=== PATIENT | male | born 1945 | race Caucasian/White ===

== ENCOUNTER 2022-04-25 19:53 | Inpatient (IN) | payer MEDICARE, BC ==
[~2022-04-25] VITALS: Ht 177.8 cm; Wt 70.8 kg
--- NOTE | 2022-04-25 19:55 | NUR ---
TO ER BED 8. BIBR 99 FROM HOME C/O SYNCOPAL EPISODE X 2. AFIB W/ HR OF 147 UPON TRIAGE. AAOX4. AMBULATORY. ADMITS TO POSSIBLE HEAD TRAUMA. DOES NOT KNOW IF KO. CONNECTED TO MONITOR. AWAITING MD ESTRADA
--- NOTE | 2022-04-25 20:02 | NUR ---
BLOOD COLLECTED AND SENT TO LAB
--- NOTE | 2022-04-25 20:02 | NUR ---
COVID ANTIGEN SWAB COLLECTED AND SENT TO LAB
[2022-04-25] MEDS ORDERED: DILTIAZEM HCL 50 MG IV ONE (20:06)
--- NOTE | 2022-04-25 20:19 | NUR ---
STAT EKG PERFORMED AT 1958 AND ORDER CAME IN AT 2003.
[2022-04-25 20:30] LABS: BASOPHILS % (AUTO) 0.3 % (0.0-2.0); EOSINOPHILS % (AUTO) 0.5 % (0.0-6.0); HEMATOCRIT 43 % (39-51); HEMOGLOBIN 14.2 g/dL (13.5-17.5); LYMPHOCYTES # (AUTO) 1.5 K/uL (0.8-4.8); MEAN CORPUSCULAR HGB CONC 33 g/dl (31.0-36.0); MEAN CORPUSCULAR VOLUME 99 fL (80-96); MONOCYTES # (AUTO) 0.6 K/uL (0.1-1.30); MONOCYTES % (AUTO) 5.2 % (2.0-12.0); NEUTROPHILS # (AUTO) 9.1 K/uL (1.8-8.9); PLATELET COUNT (AUTO) 220 K/uL (150-450); RED BLOOD CELL COUNT(AUTO) 4.33 MIL/uL (4.5-6.0); WHITE BLOOD COUNT (AUTO) 11.2 K/uL (4.3-11.0)
[2022-04-25] MEDS ORDERED: DILTIAZEM HCL 50 MG IV IV ONE (20:30)
[2022-04-25] MEDS ORDERED: IV NS 0.9% 500 ML BAG IV ONE (20:30)
--- NOTE | 2022-04-25 20:34 | NUR ---
VISUAL AID EXPERT AT PT'S BEDSIDE
--- NOTE | 2022-04-25 20:34 | NUR ---
WOUND CARE TO LEFT ELBOW SKINTEAR DONE. 8CM X 5CM. APPLIED NONADHERENT DRESSING AND KEPT CLEAN AND DRY.
[2022-04-25 20:45] LABS: CALCIUM, SERUM 8.3 mg/dL (8.5-10.1); CARBON DIOXIDE 25 mmol/L (21-32); CHLORIDE 100 mmol/L (98-107); CREATININE 1.3 mg/dL (0.6-1.3); GLUCOSE 187 mg/dL (74-106); POTASSIUM 3.7 mmol/L (3.5-5.1); SODIUM SERUM 139 mmol/L (136-145); UREA NITROGEN, BLOOD 21 mg/dL (7-18)
--- NOTE | 2022-04-25 20:45 | NUR ---
PT TAKEN FOR CT SCAN
--- NOTE | 2022-04-25 20:45 | NUR ---
BRONWYN [phone]
[2022-04-25] MEDS ORDERED: DEXAMETHASONE SOD PHOSPHATE 10 MG/ML VIAL ONE (20:56)
[2022-04-25 20:57] LABS: ALANINE AMINOTRANSFERASE 16 U/L (12-78); ALBUMIN 3.1 g/dL (3.4-5.0); ALKALINE PHOSPHATASE 121 U/L (46-116); ASPARTATE AMINOTRANSFERASE 18 U/L (15-37); BILIRUBIN,DIRECT 0.2 mg/dL (0.0-0.2); TOTAL PROTEIN, SERUM 6.9 g/dL (6.4-8.2)
[2022-04-25] MEDS ORDERED: DEXAMETHASONE SOD PHOSPHATE 10 MG/ML VIAL IV ONE (21:00)
[2022-04-25] MEDS ORDERED: IV NS 0.9% 1,000 ML BAG IV ONE (21:00)
--- NOTE | 2022-04-25 21:04 | NUR ---
URINE SAMPLE COLLECTED AND SENT TO LAB
--- NOTE | 2022-04-25 21:05 | NUR ---
LAB AT BEDSIDE FOR CULTURES
--- NOTE | 2022-04-25 21:21 | NUR ---
DR. WEINER ON PHONECALL WITH DR. MORA REGARDING ADMISSION
[2022-04-25] MEDS ORDERED: CEFTRIAXONE 1GM BAG (ER ONLY) 50 ML IV ONE ×2 (21:30→21:47)
[2022-04-25] MEDS ORDERED: hydrALAZINE HCL IV 20 MG VIAL IV PRN (21:30)
[2022-04-25] MEDS ORDERED: ACETAMINOPHEN 325 MG TABLET PO PRN (21:30)
[2022-04-25] MEDS ORDERED: ONDANSETRON HCL/PF 4 MG/2 ML VIAL IVP PRN (21:30)
[2022-04-25 21:35] LABS: BILIRUBIN,URINE SMALL (NEGATIVE); COLOR,URINE YELLOW (YELLOW); LEUKOCYTE ESTERASE ,URINE NEGATIVE (NEGATIVE); NITRITE, URINE NEGATIVE (NEGATIVE); PROTEIN,URINE 100 mg/dl (NEGATIVE); UGLUCOSE >=1000 mg/dL (NEGATIVE)
[2022-04-25] MEDS ORDERED: APIXABAN 5 MG TABLET ONE (21:47)
[2022-04-25 21:54] LABS: BACTERIA,URINE None seen /HPF (None Seen); RBC,URINE 81-100 /HPF (0-2)
[2022-04-25] MEDS: APIXABAN 5 MG TABLET PO SCH (21:55)
--- NOTE | 2022-04-25 22:06 | NUR ---
ASSIGNED TO 113-1
[2022-04-25] MEDS ORDERED: PREG50CA PO (22:12)
[2022-04-25] MEDS ORDERED: PITA2TAB PO (22:12)
[2022-04-25] MEDS ORDERED: METF-440 PO (22:12)
[2022-04-25] MEDS ORDERED: OXYC-128 PO (22:12)
[2022-04-25] MEDS ORDERED: ATEN25TA PO (22:12)
[2022-04-25] MEDS ORDERED: METH-647 PO (22:12)
[2022-04-25] MEDS ORDERED: ICOS1CAP PO (22:12)
[2022-04-25] MEDS ORDERED: LEVO75TA7 PO (22:12)
[2022-04-25] MEDS ORDERED: EMPA10TA PO (22:12)
[2022-04-25] MEDS ORDERED: ESCI20TA PO (22:12)
[2022-04-25] MEDS ORDERED: ALLO300T2 PO (22:12)
[2022-04-25] MEDS ORDERED: APIX5TAB PO (22:12)
[2022-04-25] MEDS ORDERED: TAMS-12 PO (22:12)
--- NOTE | 2022-04-25 22:14 | NUR ---
REPORT GIVEN TO BINH MARTINEZ FOR CHIKIS
[2022-04-25] MEDS: IV NS 0.9% 1,000 ML IV SCH (22:36)
--- NOTE | 2022-04-25 22:50 | NUR ---
MARBLE CHIP TERRAZZO WORKER INITIAL NOTE 22:35 RECEIVED REPORT FROM ER NURSE MARIA LUISA FOR PT JOHN BALAJI. PT ARRIVED IN BARBARA/TELE FROM ER VIA GURNEY, ADMITTED FOR SYNCOPAL EPISODE X 2, ON RA TOLERATING WELL. PT IS A/O X 3, SHOWS NO S/SX OF ACUTE DISTRESS NOTED AT THIS TIME. ABLE TO MAKE NEEDS KNOWN. IV ACCESS NOTED IN RFA #18g AND STARTED RUNNING NS @ 75 CC/HR PER MD ORDERED. PT REQUESTED TO GET HUANG CATH IN PLACE. DISCUSSED WITH MD AND WAS ORDERED AND DONE BY CHARGE NURSE MONA. INITIAL ASSESSMENTS DONE, PICTURES TAKEN (PT HAS AN OPEN SKIN TEAR ON LEFT ELBOW NOTED. CHANGED AND CLEANED THE BLOODY DRESSING) AND PLACED ON CHART, KEPT PT DRY AND CLEAN. ALL SAFETY MEASURES IN PLACE: BED LOCKED IN LOWEST POSITION. BED ALARM ON. CALL LIGHT WITHIN REACH. WILL CONTINUE TO MONITOR CLOSELY FOR ANY CHANGES.
--- NOTE | 2022-04-25 22:54 | NUR ---
TELE-1/RN DR. MORA AT BEDSIDE DISCUSSING POC WITH PT. HUANG CATH PLACED VIA STERILE PROCEDURE. PT TOLERATED PROCEDURE WELL.
[2022-04-25] MEDS ORDERED: DEXTROSE 50%-WATER 50 ML DISP.SYRIN IV PRN (23:00)
[2022-04-25] MEDS ORDERED: MIDODRINE HCL (5MG) 5 MG TABLET PO PRN (23:30)
[2022-04-25] MEDS: BLOOD SUGAR DIAGNOSTIC 1 EACH STRIP IN SCH (23:45)
[2022-04-25] MEDS: INSULIN REGULAR, HUMAN 100 UNIT/ML 3 ML VIAL SQ PRN (23:49)
[2022-04-26] VITALS: BP 154/77
[2022-04-26 04:00] VITALS: BP 117/54
[2022-04-26 06:30] LABS: HEMATOCRIT 40 % (39-51); HEMOGLOBIN 13.5 g/dL (13.5-17.5); LYMPHOCYTES # (AUTO) 0.7 K/uL (0.8-4.8); LYMPHOCYTES % (AUTO) 9.7 % (20.0-44.0); MEAN CORPUSCULAR HGB CONC 34 g/dl (31.0-36.0); MEAN CORPUSCULAR VOLUME 98 fL (80-96); MONOCYTES # (AUTO) 0.1 K/uL (0.1-1.30); MONOCYTES % (AUTO) 1.4 % (2.0-12.0); NEUTROPHILS # (AUTO) 6.6 K/uL (1.8-8.9); NEUTROPHILS % (AUTO) 88.9 % (43.0-81.0); PLATELET COUNT (AUTO) 216 K/uL (150-450); RED BLOOD CELL COUNT(AUTO) 4.08 MIL/uL (4.5-6.0); WHITE BLOOD COUNT (AUTO) 7.4 K/uL (4.3-11.0)
[2022-04-26 06:31] LABS: BILIRUBIN,TOTAL 0.5 mg/dL (0.2-1.0); CALCIUM, SERUM 8.1 mg/dL (8.5-10.1); CREATININE 0.9 mg/dL (0.6-1.3); MAGNESIUM 2.2 mg/dL (1.8-2.4); PHOSPHORUS 2.5 mg/dL (2.5-4.9); POTASSIUM 4.3 mmol/L (3.5-5.1); TOTAL PROTEIN, SERUM 6.7 g/dL (6.4-8.2)
--- NOTE | 2022-04-26 06:50 | NUR ---
PERFORATOR LOADER CLOSING NOTE PT REMAINED STABLE THROUGHOUT THE SHIFT. ON RA, TOLERATING WELL. NO S/SX OF ACUTE DISTRESS NOTED. TELEMONITOR SHOWS SINUS BRADYCARDIA WITH HR IN THE 50s. O2 SAT IS 99%. IV ACCESS IN RFA #18g RUNNING NS @ 75 CC/HR. HUANG CATH IN PLACE, TOLERATING WELL, DRAINING YELLOW URINE VIA GRAVITY. ALL DUE MEDS GIVEN. NEEDS ATTENDED TO. SAFETY MEASURES IMPLEMENTED: BED LOCKED IN LOWEST POSITION. BED ALARM ON. CALL LIGHT WITHIN REACH. WILL ENDORSE TO AM SHIFT NURSE FOR CHIKIS.
--- NOTE | 2022-04-26 07:00 | NUR ---
RN am note Patient is in bed sleeping , on room air , tolerating well,breathing unlabored , O2 sat 99 %, has Eller Cath in place with clear yellow urine.Patient is at high risk for fall due to ambulatory with primary diagnosis Syncope. Patient has mechanical wound of his left elbow , awaiting wound consult.Patient has IV acces of the RFA 18 g with NS running at 75 ml/hr . IV site assessed , skin intact , no sighs of infiltration.Patient is on regular diet All safety measures were observed,bed side rails are up , bed is at lowest position , call light within reach will continue to monitor..
[2022-04-26] MEDS: LEVOTHYROXINE SODIUM 75 MCG TABLET PO SCH (07:07)
[2022-04-26] MEDS: BLOOD SUGAR DIAGNOSTIC 1 EACH STRIP IN SCH ×4 (07:31→22:43)
[2022-04-26] MEDS: INSULIN REGULAR, HUMAN 100 UNIT/ML 3 ML VIAL SQ PRN ×4 (07:37→22:43)
[2022-04-26 08:00] VITALS: BP 159/77
[2022-04-26] MEDS: ESCITALOPRAM OXALATE (10 MG) 10 MG TABLET PO SCH (08:21)
[2022-04-26] MEDS: FLUDROCORTISONE 0.1 MG TABLET PO SCH (08:21)
[2022-04-26] MEDS: ALLOPURINOL 100 MG TABLET PO SCH ×2 (08:21→16:23)
[2022-04-26] MEDS: METHOCARBAMOL (500MG) 500 MG TABLET PO SCH ×3 (08:22→16:23)
[2022-04-26] MEDS: ATORVASTATIN 10 MG TABLET PO SCH (08:23)
[2022-04-26] MEDS: TAMSULOSIN 0.4 MG CAP.SR.24H PO SCH (08:23)
[2022-04-26] MEDS: PREGABALIN 25 MG CAPSULE PO SCH ×3 (08:24→16:23)
[2022-04-26] MEDS: APIXABAN 5 MG TABLET PO SCH (08:26)
[2022-04-26] MEDS: ATENOLOL 25 MG TABLET PO SCH (08:28)
[2022-04-26] MEDS ORDERED: Medication Not On Formulary EA (Icosapent Ethyl (Vascepa) 2 GM) PO SCH (09:00)
[2022-04-26] MEDS ORDERED: LEVOFLOXACIN (250MG) 250 MG TABLET PO SCH (09:00)
[2022-04-26] MEDS ORDERED: APIXABAN 5 MG TABLET PO SCH (09:00)
[2022-04-26] MEDS: LEVOFLOXACIN (250MG) 250 MG TABLET PO SCH (10:45)
[2022-04-26] MEDS: IV NS 0.9% 1,000 ML IV SCH (10:48)
--- NOTE | 2022-04-26 11:12 | NUR ---
RN note order received to start patient on NPO, due to scheduled procedure PEG placement for tonight 19-20 pm .Aleida srinivasan Matt was notified , verbalized understanding. Addendum: 04/26/22 at 1333 by APRIL LOMELI RN wrong documentation, please disregard
[2022-04-26] MEDS: MORPHINE SULFATE INJ 2 MG/ML DISP.SYRIN IV PRN ×7 (12:04→21:56)
[2022-04-26 13:42] VITALS: BP 117/67
[2022-04-26 16:14] VITALS: BP 132/82
--- NOTE | 2022-04-26 17:35 | NUR ---
RN note wound of the left elbow , dressing changed, cleansed with ND , pet dried, applied Xeroform , wrap with kerlx , secure with tape, patient tolerated procedure well.
--- NOTE | 2022-04-26 18:45 | NUR ---
RN closing note Patient is alert , oriented times 3, ambulatory. Has Eller cath in place, urine is clear and yellow. Patient is at room air breathing un labored, O2 sat 98 %, c/o pain of the left hip ,morphine was given twice upon day shift .Patient has NS running at 75 ml/hr via saline lock of the right wrist,has open wound of the left elbow , wound care was done , home care specialist visit is pending. All medication were provided per MD order. Bed is at lowest position , bed side rails are up , call light within reach .
--- NOTE | 2022-04-26 19:25 | NUR ---
DAMPER MAKER OPENING NOTES RECEIVED CARE OF PATIENT FROM AM NURSE, PATIENT IN BED, A/O X3, ABLE TO MAKE NEEDS KNOWN. PATIENT IN NO DISCOMFORT AT THIS TIME. PATIENT IN ROOM AIR, BREATHING EVEN AND UNLABORED, NO SOB NOTED, O2 SAT 96%. PATIENT WITH TELE MONITOR SHOWING SINUS DOMENICO WITH HR OF 62, NO DISTRESS NOTED ON PATIENT. NO SIGNIFICANT FINDINGS UPON INITIAL NURSING ASSESSMENTS. SAFETY MEASURES IMPLEMENTED PER HOSPITAL PROTOCOLS. WILL CONTINUE TO MONITOR PATIENT.
[2022-04-26 20:00] VITALS: BP 144/68
[2022-04-27] VITALS: BP 150/85
[2022-04-27] MEDS: MORPHINE SULFATE INJ 2 MG/ML DISP.SYRIN IV PRN ×3 (02:12→15:51)
[2022-04-27 04:00] VITALS: BP 175/96
--- NOTE | 2022-04-27 05:25 | NUR ---
RN NOTES PATIENT NOTED TO BE HYPERTENSIVE WITH BP OF 175/96, HR OF 63. PATIENT SHOWING NO SIGNS AND SYMPTOMS OF ACUTE DISTRESS. WILL ADMINISTER HYDRALAZINE PRN FOR SBP GREATER THAN 160. WILL REASSESS BP ACCORDINGLY
[2022-04-27 05:57] LABS: BASOPHILS % (AUTO) 0.1 % (0.0-2.0); HEMATOCRIT 40 % (39-51); HEMOGLOBIN 13.6 g/dL (13.5-17.5); LYMPHOCYTES # (AUTO) 1.1 K/uL (0.8-4.8); LYMPHOCYTES % (AUTO) 11.7 % (20.0-44.0); MEAN CORPUSCULAR HGB CONC 34 g/dl (31.0-36.0); MEAN CORPUSCULAR VOLUME 99 fL (80-96); MONOCYTES # (AUTO) 0.4 K/uL (0.1-1.30); MONOCYTES % (AUTO) 4.4 % (2.0-12.0); NEUTROPHILS # (AUTO) 8.1 K/uL (1.8-8.9); NEUTROPHILS % (AUTO) 83.8 % (43.0-81.0); PLATELET COUNT (AUTO) 257 K/uL (150-450); RED BLOOD CELL COUNT(AUTO) 4.09 MIL/uL (4.5-6.0); WHITE BLOOD COUNT (AUTO) 9.7 K/uL (4.3-11.0)
[2022-04-27 06:32] LABS: CALCIUM, SERUM 8.1 mg/dL (8.5-10.1); CARBON DIOXIDE 28 mmol/L (21-32); CHLORIDE 105 mmol/L (98-107); GLUCOSE 167 mg/dL (74-106); POTASSIUM 3.4 mmol/L (3.5-5.1); SODIUM SERUM 143 mmol/L (136-145); UREA NITROGEN, BLOOD 22 mg/dL (7-18)
--- NOTE | 2022-04-27 06:55 | NUR ---
RN CLOSING NOTES WILL ENDORSE CARE OF PATIENT TO AM NURSE, PATIENT A/O X4, ABLE TO MAKE NEEDS KNOWN. PATIENT'S PAIN HAS BEEN MANAGED THROUGH MORPHINE PRN Q4H ADMINISTRATION. NO SIGNIFICANT FINDINGS UPON ALL NURSING ASSESSMENTS. ALL DUE MEDS GIVEN. SAFETY MEASURES IMPLEMENTED PER HOSPITAL PROTOCOLS. WILL ENDORSE TO AM NURSE FOR CONTINUITY OF CARE.
--- NOTE | 2022-04-27 07:00 | NUR ---
RN NOTE RECEIVED PATIENT IN BED RESTING ALERT ORIENTED X4 VERBALLY RESPONSIVE ON ROOM AIR O2:97% IV SITE IS ON RIGHT FOREARM INTACT PATENT,HUANG CATHETER IN PLACE URINE DRAINING YELLOW AND CLEAR BY GRAVITY,SAFETY MEASURE IMPLEMENT BED IN LOW POSITION AND LOCKED,CALL LIGHT WITHIN REACH CONTINUE TO MONITOR.
[2022-04-27] MEDS: LEVOTHYROXINE SODIUM 75 MCG TABLET PO SCH (07:31)
[2022-04-27] MEDS: BLOOD SUGAR DIAGNOSTIC 1 EACH STRIP IN SCH ×4 (07:31→21:41)
[2022-04-27 08:00] VITALS: BP 112/70
[2022-04-27] MEDS: INSULIN REGULAR, HUMAN 100 UNIT/ML 3 ML VIAL SQ PRN ×2 (08:03→19:02)
[2022-04-27] MEDS: ESCITALOPRAM OXALATE (10 MG) 10 MG TABLET PO SCH (08:51)
[2022-04-27] MEDS: ALLOPURINOL 100 MG TABLET PO SCH ×2 (08:52→16:27)
[2022-04-27] MEDS: PREGABALIN 25 MG CAPSULE PO SCH ×4 (08:52→17:12)
[2022-04-27] MEDS: FLUDROCORTISONE 0.1 MG TABLET PO SCH (08:52)
[2022-04-27] MEDS: ATORVASTATIN 10 MG TABLET PO SCH (08:53)
[2022-04-27] MEDS: METHOCARBAMOL (500MG) 500 MG TABLET PO SCH ×3 (08:54→16:27)
[2022-04-27] MEDS: TAMSULOSIN 0.4 MG CAP.SR.24H PO SCH (08:57)
[2022-04-27] MEDS: ATENOLOL 25 MG TABLET PO SCH (08:59)
--- NOTE | 2022-04-27 09:29 | NUR ---
RN NOTE ATENOLOL HELD PER MED ORDER PT HR OF 56 <60
[2022-04-27] MEDS ORDERED: POTASSIUM CHLORIDE 20 MEQ TAB.PRT.SR PO SCH (10:00)
--- NOTE | 2022-04-27 10:01 | NUR ---
WOUND CARE CONSULT: PT PRESENTS WITH SCARS/SCABS TO LOWER LEGS AND LARGE SKIN TEAR TO LEFT ELBOW AREA, PRESENT ON ADMISSION. RECOMMENDATIONS MADE FOR SKIN PROTECTION AND WOUND CARE. DISCUSSED WITH NURSING STAFF.MD IN AGREEMENT WITH PLAN OF CARE.
[2022-04-27] MEDS: LEVOFLOXACIN (250MG) 250 MG TABLET PO SCH (10:51)
[2022-04-27 12:00] VITALS: BP 112/56
[2022-04-27] MEDS: IV NS 0.9% 1,000 ML IV PRN (14:50)
[2022-04-27 16:00] VITALS: BP 131/67
--- NOTE | 2022-04-27 18:59 | NUR ---
RN CLOSING NOTES PATIENT ADMITTED FOR SYNCOPE, ORTHOSTATIC BLOOD PRESSURE WAS TAKEN AND RESULTED POSITIVE FOR ORTHOSTATIC HYPOTENSION. PT ON RA SATS IN THE HIGH 90'S, A/O X4 AND ABLE TO MAKE NEEDS KNOWN. HAS A HUANG CATHETER THAT IS PATENT AND DRAINING YELLOW URINE. AMBULATES WITH ASSISTANCE WILL BECOME DIZZY IF STANDING. HAS WOUNDS ON THE R KNEE. AND ABRASSION ON L ELBOW FROM FALL. R IV CATHETER 18 GAUGE. ALL SAFETY MEASURES IMPLEMENTED ALL PATIENTS NEEDS ARE MET AT THIS TIME.
[2022-04-27 20:00] VITALS: BP 129/65
--- NOTE | 2022-04-27 20:10 | NUR ---
MS RN NOTE PT IN BED AWAKE. A/O X 4, NO SOB, NO DISTRESS OR DISCOMFORT NOTED. DENIES PAIN. IVF NS INFUSING AT 75 ML/HR, NO S/S OF INFILTRATION NOTED. ICE PACK PROVIDED FOR PT PER REQUEST FOR HIS BILATERAL HIPS AND NECK. PER PT HE FELL AT HOME. DRESSING ON LT ELBOW I/C/D. F/C INTACT AND PATENT DRAINING YELLOWISH COLOR URINE. PT ABLE TO REPOSITION HIMSELF IN BED. ALL NEEDS ATTENDED. SIDE RAILS UP X 2 AND CALL LIGHT WITHIN REACH. VSS. CONTINUE TO MONITOR HIM.
[2022-04-28 04:00] VITALS: BP 173/89
--- NOTE | 2022-04-28 04:30 | NUR ---
MS RN NOTE PT WOKE UP C/O PAIN IN LOWER BACK 06/23, MORPHINE SULFATE 2 MG IVP GIVEN. FOR PAIN. ALSO PROVIDED ICE PACK FOR HIM. NOTED BP IS ALSO HIGH. PT STATES "I DON'T WANT ANY MEDICATION TO LOWER BP BCS IT MADE HIM SICK YESTERDAY". CONTINUE TO MONITOR HIM.
[2022-04-28] MEDS: MORPHINE SULFATE INJ 2 MG/ML DISP.SYRIN IV PRN ×2 (04:34→11:24)
[2022-04-28] MEDS: IV NS 0.9% 1,000 ML IV PRN ×2 (04:34→14:33)
--- NOTE | 2022-04-28 05:05 | NUR ---
MS RN NOTE PT IN BED ASLEEP, AROUSABLE. NO DISTRESS NOTED. PAIN SUBSIDED 12/24. ALSO B/P CAME DOWN TO 150/76
--- NOTE | 2022-04-28 06:27 | NUR ---
MS RN NOTE PT IN BED ASLEEP, NO DISTRESS OR DISCOMFORT NOTED. DENIES PAIN. IVF INFUSING WELL, NO S/S OF INFILTRATION NOTED. ALL NEEDS ATTENDED. WILL ENDORSE TO DAY SHIFT NURSE FOR CONTINUE TO CARE.
[2022-04-28 07:18] LABS: BASOPHILS % (AUTO) 0.5 % (0.0-2.0); EOSINOPHILS % (AUTO) 2.7 % (0.0-6.0); HEMATOCRIT 39 % (39-51); HEMOGLOBIN 13.4 g/dL (13.5-17.5); LYMPHOCYTES # (AUTO) 1.6 K/uL (0.8-4.8); LYMPHOCYTES % (AUTO) 21.1 % (20.0-44.0); MEAN CORPUSCULAR HGB CONC 34 g/dl (31.0-36.0); MEAN CORPUSCULAR VOLUME 97 fL (80-96); MONOCYTES # (AUTO) 0.5 K/uL (0.1-1.30); MONOCYTES % (AUTO) 6.9 % (2.0-12.0); NEUTROPHILS # (AUTO) 5.2 K/uL (1.8-8.9); NEUTROPHILS % (AUTO) 68.8 % (43.0-81.0); PLATELET COUNT (AUTO) 221 K/uL (150-450); RED BLOOD CELL COUNT(AUTO) 4.04 MIL/uL (4.5-6.0); WHITE BLOOD COUNT (AUTO) 7.6 K/uL (4.3-11.0)
--- NOTE | 2022-04-28 07:20 | NUR ---
RN NOTE RECEIVED PATIENT IN BED RESTING ALERT ORIENTED X4 VERBALLY RESPONSIVE ON ROOM AIR IV SITE IS ON RIGHT FOREARM INTACT PATENT ON IV HYDRATION NS 75CC/HR,HUANG CATHETER IN PLACE URINE DRAINING YELLOW AND CLEAR BY GRAVITY,SAFETY MEASURE IMPLEMENT BED IN LOW POSITION AND LOCKED,CALL LIGHT WITHIN REACH CONTINUE TO MONITOR.
[2022-04-28] MEDS: BLOOD SUGAR DIAGNOSTIC 1 EACH STRIP IN SCH ×4 (07:28→21:48)
[2022-04-28] MEDS: LEVOTHYROXINE SODIUM 75 MCG TABLET PO SCH (07:28)
[2022-04-28 07:37] LABS: CARBON DIOXIDE 28 mmol/L (21-32); CHLORIDE 108 mmol/L (98-107); CREATININE 0.9 mg/dL (0.6-1.3); GLUCOSE 128 mg/dL (74-106); POTASSIUM 3.7 mmol/L (3.5-5.1); SODIUM SERUM 144 mmol/L (136-145); UREA NITROGEN, BLOOD 20 mg/dL (7-18)
[2022-04-28 08:00] VITALS: BP 130/59
[2022-04-28] MEDS: ALLOPURINOL 100 MG TABLET PO SCH ×2 (08:21→16:41)
[2022-04-28] MEDS: TAMSULOSIN 0.4 MG CAP.SR.24H PO SCH (08:21)
[2022-04-28] MEDS: ATORVASTATIN 10 MG TABLET PO SCH (08:22)
[2022-04-28] MEDS: FLUDROCORTISONE 0.1 MG TABLET PO SCH (08:22)
[2022-04-28] MEDS: PREGABALIN 25 MG CAPSULE PO SCH ×3 (08:22→16:42)
[2022-04-28] MEDS: ESCITALOPRAM OXALATE (10 MG) 10 MG TABLET PO SCH (08:22)
[2022-04-28] MEDS: METHOCARBAMOL (500MG) 500 MG TABLET PO SCH ×3 (08:26→16:42)
[2022-04-28] MEDS: ATENOLOL 25 MG TABLET PO SCH (08:49)
[2022-04-28] MEDS: LEVOFLOXACIN (250MG) 250 MG TABLET PO SCH (09:35)
[2022-04-28 12:00] VITALS: BP_SYST 122; BP_SYST 130; BP_DIAS 59; BP_DIAS 67
[2022-04-28] MEDS: INSULIN REGULAR, HUMAN 100 UNIT/ML 3 ML VIAL SQ PRN ×2 (12:53→21:26)
[2022-04-28 16:00] VITALS: BP 106/62
[2022-04-28] MEDS ORDERED: TEMAZEPAM 15 MG CAPSULE PO PRN (19:00)
[2022-04-28 20:00] VITALS: BP 130/64
[2022-04-29] VITALS: BP 136/64
--- NOTE | 2022-04-29 02:50 | NUR ---
RN NOTE MORPHINE 2MG/ML PRN GIVEN FOR PAIN 06/23 NOT ABLE TO SCAN BECAUSE OF [employer] MAINTENANCE,CONTINUE TO MONITOR.
[2022-04-29 04:00] VITALS: BP 121/89
--- NOTE | 2022-04-29 06:25 | NUR ---
RN NOTE PATIENT REMAINS ON ALERT ORIENTED X4 VERBALLY RESPONSIVE NO SOB NOT ACUTE DISTRESS NOTED,ON ROOM AIR,HUANG REAGAN IN PLACE,ALL DUE MEDS GIVEN MD ORDERED PRN MORPHINE GIVEN AT 0250,NO PAIN NOW KEPT CLEAN AND DRY ALL THE TIEM,KEPT COMFORTABLE KEPT CALL LIGHT WITHIN REACH,ALL NEEDS MET ENDORSE NEXT COMING SHIFT FOR CONTINUATION OF CARE.
--- NOTE | 2022-04-29 07:00 | NUR ---
RN open note Patient in the bed alert , oriented times 3, c/o generalized weakness,, on room air , breathing unlabored , no sighns of distress, O2 sat 96%, patient has Eller Cath in place with clear yellow urine, ambulates with assisstance . Patient has open wound of the left elbow, s/pfall at home. Patient is on regular diet, has Iv access on RFA 18 g with NS running at 75 ml/hr , skin around the IV access intact . Bed is at lowest position , bed siade rails are up, call light within reach . Will continue to monitor
[2022-04-29] MEDS: LEVOTHYROXINE SODIUM 75 MCG TABLET PO SCH (07:47)
[2022-04-29 08:00] VITALS: BP 152/83
[2022-04-29] MEDS: TAMSULOSIN 0.4 MG CAP.SR.24H PO SCH (08:35)
[2022-04-29] MEDS: PREGABALIN 25 MG CAPSULE PO SCH ×2 (08:36→13:20)
[2022-04-29] MEDS: FLUDROCORTISONE 0.1 MG TABLET PO SCH (08:36)
[2022-04-29] MEDS: ATORVASTATIN 10 MG TABLET PO SCH (08:37)
[2022-04-29] MEDS: METHOCARBAMOL (500MG) 500 MG TABLET PO SCH ×2 (08:37→13:21)
[2022-04-29] MEDS: ESCITALOPRAM OXALATE (10 MG) 10 MG TABLET PO SCH (08:38)
[2022-04-29] MEDS: ALLOPURINOL 100 MG TABLET PO SCH (08:38)
[2022-04-29] MEDS: ATENOLOL 25 MG TABLET PO SCH (08:42)
[2022-04-29] MEDS: BLOOD SUGAR DIAGNOSTIC 1 EACH STRIP IN SCH ×2 (08:55→12:43)
[2022-04-29] MEDS: INSULIN REGULAR, HUMAN 100 UNIT/ML 3 ML VIAL SQ PRN (08:59)
[2022-04-29] MEDS ORDERED: FLUD0.1T PO (09:08)
[2022-04-29 12:00] VITALS: BP 149/67
--- NOTE | 2022-04-29 14:40 | NUR ---
RN note Patient is at stable condition , order to discharge received . Patient's spouse at bed side . Disharge instructions provided tothe patient and his spoues, verbally and printed , instructions provided on medications regime , importance to fallow up with MD appointments , s/s report to MD . Patient and PCg verbalized understanding . Patient discharged.
== END 2022-04-29 14:00 | disposition home health service (06) | DRG 74 ==
LOC: ER 19:55 → TELE1 22:13 → MEDSG1 04-27 10:15
PROVIDERS: ADMIT Internal Medicine; ATTEND Nurse Practitioner Acute Care
DX: G90.8 Other disorders of autonomic nervous system (principal); E87.2 Acidosis; N40.0 Benign prostatic hyperplasia without lower urinary tract symptoms; E11.9 Type 2 diabetes mellitus without complications; Z20.822 Contact with and (suspected) exposure to COVID-19; I10 Essential (primary) hypertension; Z79.01 Long term (current) use of anticoagulants; Z87.891 Personal history of nicotine dependence; E03.9 Hypothyroidism, unspecified; I48.0 Paroxysmal atrial fibrillation; N32.3 Diverticulum of bladder; E87.6 Hypokalemia; Z98.890 Other specified postprocedural states; R79.89 Other specified abnormal findings of blood chemistry; Z79.84 Long term (current) use of oral hypoglycemic drugs; Z79.899 Other long term (current) drug therapy
CPT/HCPCS: 36415; 70450-TC; 71045-TC; 73502; 80048-TC; 80053-TC; 80076-TC; 80162-TC; 81001; 82550-TC; 82962-TC; 83605-TC; 83735-TC; 83880; 84100-TC; 84484-TC; 85025-TC; 85730-TC; 87040-TC; 87081-TC; 87086-TC; 93307-TC; 94799-TC; 97116-TC; 97530-TC; A4217; C9803; G0378; J0360; J0696; J1100; J1815; J2270; J2405; J3490; J7030; J7040